=== PATIENT | female | born 1930 | race Caucasian/White ===

== ENCOUNTER 2019-11-22 12:01 | Inpatient (IN) ==
[2019-11-22] MEDS ORDERED: NS 0.9% 1000 ml BAG 1,000 ML IV ONE (12:15)
[2019-11-22] MEDS ORDERED: Metoprolol Tartrate 5 mg VIAL 5 ml VIAL (1 mg/ml) IV ONE (12:31)
[2019-11-22 12:49] LABS: Activated Partial Thrombo Time 25.3 seconds (26.0-38.0); INR 1.06 (0.82-1.09)
[2019-11-22 12:53] LABS: ALT 10 U/L (7-52); AST 16 U/L (13-39); Albumin/Globulin Ratio 1.4 (1-3); Alkaline Phosphatase 80 U/L (34-104); Anion Gap 7 mmol/L (2-11); BUN/Creatinine Ratio 13.3 (8-20); Blood Urea Nitrogen 19 mg/dL (6-24); CO2 Carbon Dioxide 27 mmol/L (22-32); Calcium 9.2 mg/dL (8.6-10.3); Chloride 103 mmol/L (101-111); EGFR African American 41.9 (>60); EGFR Non-African American 34.6 (>60); Globulin 2.9 g/dL (2-4); Glucose 147 mg/dL (70-100); Potassium 3.5 mmol/L (3.5-5.0); Sodium 137 mmol/L (135-145); Total Protein 6.9 g/dL (6.4-8.9)
[2019-11-22 12:56] LABS: ABS Basophils 0.1 10^3/ul (0-0.2); ABS Eosinophils 0.2 10^3/ul (0-0.6); ABS Lymphocytes 1.1 10^3/ul (1.0-4.8); ABS Monocytes 0.4 10^3/ul (0-0.8); Eosinophil % 2.2 %; Hematocrit 32 % (35-47); Hemoglobin 11.1 g/dL (12.0-16.0); Lymphocyte % 13.7 %; Mean Corpuscular HGB Conc 34 g/dL (31-36); Mean Corpuscular Hemoglobin 32 pg (27-31); Mean Corpuscular Volume 92 fL (80-97); Mean Platelet Volume 9.2 fL (7.4-10.4); Platelet Count 197 10^3/uL (150-450); Red Blood Count 3.51 10^6 /uL (3.70-4.87); Red Cell Distribution Width 14 % (10-15); Troponin I 0.13 ng/mL (<0.03); White Blood Count 8.2 10^3/uL (3.5-10.8)
[2019-11-22] MEDS: nitroGLYCERIN DRIP 25,000 MCG/250 ML BTL IV ONE ×2 (13:28→14:15)
[2019-11-22] MEDS: Heparin DRIP 25,000 UNITS(*) 25,000 UNITS/500 ML BAG IV SCH (13:33)
[2019-11-22] MEDS: Heparin 5000 UNITS/ML VIAL(*) 1 ml vial IV SCH (13:35)
[2019-11-22 13:59] LABS: Urine Appearance Cloudy; Urine Bilirubin Negative (Negative); Urine Blood 1+ (Negative); Urine Color Yellow; Urine Glucose Negative (Negative); Urine Ketones Negative (Negative); Urine Nitrite Positive (Negative); Urine Protein Negative (Negative); Urine Specific Gravity 1.009 (1.010-1.030); Urine Urobilinogen Negative (Negative)
[2019-11-22 14:01] LABS: Urine Bacteria 1+ (Absent); Urine Red Blood Cell 1+(3-5/hpf) (Absent); Urine Squamous Epithelial Cell Present (Absent); Urine White Blood Cell 2+(11-20/hpf) (Absent)
[2019-11-22] MEDS ORDERED: Iodixanol (CONTRAST) 320 MG/ML 100 ML SDV IV ONE (15:42)
[2019-11-22] MEDS ORDERED: metroNIDAZOLE IV 500 MG/100ML 500 MG/100 ML BAG IVPB SCH (16:00)
[2019-11-22] MEDS ORDERED: diPHENhydraMINE IV 50 MG/ML 1 ml VIAL (BENADRYL) ONE (16:37)
[2019-11-22] MEDS ORDERED: Ondansetron 4 mg VIAL 2 MG/ML 2 ml VIAL ONE (16:38)
[2019-11-22] MEDS ORDERED: NS 0.9% 500 ml BAG 500 ML IV ONE (16:40)
[2019-11-22] MEDS ORDERED: diPHENhydraMINE IV 50 MG/ML 1 ml VIAL (BENADRYL) SLOW PUSH STA (16:40)
[2019-11-22] MEDS ORDERED: methylPREDNISolone 125 mg 2 ML VIAL IV STA (16:40)
[2019-11-22] MEDS ORDERED: diPHENhydraMINE IV 50 MG/ML 1 ml VIAL (BENADRYL) SLOW PUSH ONE (17:04)
[2019-11-22] MEDS: cefTRIAXone ADVAN VIAL 1 GM in NS 0.9% 50 ML 50 ML IVPB SCH (17:31)
[2019-11-22 17:41] LABS: Troponin I 2.14 ng/mL (<0.03)
[2019-11-22 20:52] LABS: Troponin I 2.77 ng/mL (<0.03)
[2019-11-23] MEDS: nitroGLYCERIN DRIP 25,000 MCG/250 ML BTL IV SCH ×6 (01:23→20:57)
[2019-11-23 03:39] LABS: Troponin I 9.64 ng/mL (<0.03)
[2019-11-23] MEDS: Heparin 5000 UNITS/ML VIAL(*) 1 ml vial IV SCH (03:58)
[2019-11-23 04:40] LABS: ABS Lymphocytes 0.5 10^3/ul (1.0-4.8); ABS Monocytes 0.1 10^3/ul (0-0.8); Eosinophil % 0.2 %; Hematocrit 32 % (35-47); Hemoglobin 10.9 g/dL (12.0-16.0); Lymphocyte % 11.4 %; Mean Corpuscular HGB Conc 34 g/dL (31-36); Mean Corpuscular Hemoglobin 31 pg (27-31); Mean Corpuscular Volume 94 fL (80-97); Mean Platelet Volume 9.2 fL (7.4-10.4); Nucleated Red Blood Cells % 0.1; Platelet Count 178 10^3/uL (150-450); Red Blood Count 3.47 10^6 /uL (3.70-4.87); Red Cell Distribution Width 14 % (10-15); White Blood Count 4.4 10^3/uL (3.5-10.8)
[2019-11-23 05:02] LABS: Troponin I 7.46 ng/mL (<0.03)
[2019-11-23 08:36] LABS: Troponin I 9.64 ng/mL (<0.03)
[2019-11-23 12:38] LABS: Troponin I 6.66 ng/mL (<0.03)
[2019-11-23 14:23] LABS: Anion Gap 15 mmol/L (2-11); CO2 Carbon Dioxide 17 mmol/L (22-32); Chloride 99 mmol/L (101-111); Potassium 3.4 mmol/L (3.5-5.0); Sodium 131 mmol/L (135-145)
[2019-11-23 14:29] LABS: BUN/Creatinine Ratio 13.6 (8-20); Blood Urea Nitrogen 19 mg/dL (6-24); EGFR African American 42.9 (>60); EGFR Non-African American 35.5 (>60); Glucose 384 mg/dL (70-100)
[2019-11-23] MEDS: cefTRIAXone ADVAN VIAL 1 GM in NS 0.9% 50 ML 50 ML IVPB SCH (15:59)
[2019-11-23] MEDS ORDERED: Haloperidol 5 mg/ml SDV IV/IM 5 MG/ML AMP IV SLOW PU ONE (18:00)
[2019-11-23] MEDS ORDERED: Haloperidol 5 mg/ml SDV IV/IM 5 MG/ML AMP ONE (18:06)
[2019-11-23] MEDS ORDERED: Potassium Chlor 20 meq TAB.ER PO ONE (21:00)
[2019-11-23 21:26] LABS: Magnesium 1.9 mg/dL (1.9-2.7)
[2019-11-23] MEDS ORDERED: KCL 20 MEQ/100 ML IVPREMIX 20 MEQ/100 ML BAG IV ONE (22:00)
[2019-11-24] MEDS ORDERED: Haloperidol 5 mg/ml SDV IV/IM 5 MG/ML AMP IV SLOW PU ONE (01:20)
[2019-11-24 02:07] LABS: ABS Eosinophils 0.1 10^3/ul (0-0.6); ABS Lymphocytes 1.1 10^3/ul (1.0-4.8); ABS Monocytes 0.6 10^3/ul (0-0.8); Hematocrit 25 % (35-47); Hemoglobin 8.3 g/dL (12.0-16.0); Lymphocyte % 11.5 %; Mean Corpuscular HGB Conc 34 g/dL (31-36); Mean Corpuscular Hemoglobin 32 pg (27-31); Mean Corpuscular Volume 94 fL (80-97); Mean Platelet Volume 9.6 fL (7.4-10.4); Platelet Count 157 10^3/uL (150-450); Red Blood Count 2.63 10^6 /uL (3.70-4.87); Red Cell Distribution Width 14 % (10-15); White Blood Count 9.2 10^3/uL (3.5-10.8)
[2019-11-24 02:11] LABS: CO2 Carbon Dioxide 18 mmol/L (22-32); Calcium 8.2 mg/dL (8.6-10.3); Chloride 110 mmol/L (101-111); Sodium 128 mmol/L (135-145)
[2019-11-24 02:16] LABS: BUN/Creatinine Ratio 14.8 (8-20); Blood Urea Nitrogen 22 mg/dL (6-24); Glucose 216 mg/dL (70-100)
[2019-11-24 02:57] LABS: ABS Eosinophils 0.1 10^3/ul (0-0.6); ABS Lymphocytes 1.1 10^3/ul (1.0-4.8); ABS Monocytes 0.6 10^3/ul (0-0.8); Eosinophil % 0.9 %; Hematocrit 29 % (35-47); Hemoglobin 10.2 g/dL (12.0-16.0); Lymphocyte % 12.3 %; Mean Corpuscular HGB Conc 35 g/dL (31-36); Mean Corpuscular Hemoglobin 32 pg (27-31); Mean Corpuscular Volume 93 fL (80-97); Mean Platelet Volume 9.3 fL (7.4-10.4); Platelet Count 180 10^3/uL (150-450); Red Blood Count 3.15 10^6 /uL (3.70-4.87); Red Cell Distribution Width 13 % (10-15); White Blood Count 9.1 10^3/uL (3.5-10.8)
[2019-11-24 03:12] LABS: BUN/Creatinine Ratio 14.3 (8-20); Calcium 9.3 mg/dL (8.6-10.3); EGFR African American 36.5 (>60); EGFR Non-African American 30.2 (>60); Potassium 3.7 mmol/L (3.5-5.0)
[2019-11-24] MEDS: Heparin 5000 UNITS/ML VIAL(*) 1 ml vial IV SCH (04:05)
[2019-11-24] MEDS: Heparin DRIP 25,000 UNITS(*) 25,000 UNITS/500 ML BAG IV SCH (04:06)
[2019-11-24] MEDS: cefTRIAXone ADVAN VIAL 1 GM in NS 0.9% 50 ML 50 ML IVPB SCH (16:02)
[2019-11-25 05:43] LABS: ABS Eosinophils 0.1 10^3/ul (0-0.6); ABS Lymphocytes 0.9 10^3/ul (1.0-4.8); ABS Monocytes 0.5 10^3/ul (0-0.8); Eosinophil % 0.8 %; Hematocrit 33 % (35-47); Hemoglobin 10.9 g/dL (12.0-16.0); Lymphocyte % 10.4 %; Mean Corpuscular HGB Conc 34 g/dL (31-36); Mean Corpuscular Hemoglobin 31 pg (27-31); Mean Corpuscular Volume 94 fL (80-97); Mean Platelet Volume 10.2 fL (7.4-10.4); Nucleated Red Blood Cells % 0.1; Platelet Count 195 10^3/uL (150-450); Red Blood Count 3.47 10^6 /uL (3.70-4.87); Red Cell Distribution Width 14 % (10-15); White Blood Count 8.8 10^3/uL (3.5-10.8)
[2019-11-25] MEDS: Rivaroxaban 15 mg TAB (*) PO SCH (08:08)
[2019-11-25] MEDS ORDERED: Magnesium Hydroxide LIQ 30 ML UDC PO PRN (08:58)
[2019-11-25 10:12] LABS: BUN/Creatinine Ratio 15.3 (8-20); Calcium 9.4 mg/dL (8.6-10.3); EGFR African American 39.7 (>60); EGFR Non-African American 32.8 (>60); Potassium 3.6 mmol/L (3.5-5.0)
[2019-11-25] MEDS ORDERED: Isosorbide Mononit ER 30mg TAB PO ONE (11:41)
[2019-11-25] MEDS: hydrALAZINE 20 mg/ml 1 ML Vial IV IV SLOW PU PRN (20:44)
[2019-11-26] MEDS: hydrALAZINE 20 mg/ml 1 ML Vial IV IV SLOW PU PRN ×2 (03:12→15:35)
[2019-11-26 09:03] LABS: Anion Gap 11 mmol/L (2-11); BUN/Creatinine Ratio 18.9 (8-20); Blood Urea Nitrogen 28 mg/dL (6-24); CO2 Carbon Dioxide 21 mmol/L (22-32); Calcium 9.4 mg/dL (8.6-10.3); Chloride 110 mmol/L (101-111); EGFR African American 40.3 (>60); EGFR Non-African American 33.3 (>60); Glucose 165 mg/dL (70-100); Magnesium 2.2 mg/dL (1.9-2.7); Potassium 3.5 mmol/L (3.5-5.0); Sodium 142 mmol/L (135-145)
[2019-11-26 09:10] LABS: Troponin I 10.74 ng/mL (<0.03)
[2019-11-26] MEDS: Rivaroxaban 15 mg TAB (*) PO SCH (09:38)
[2019-11-26] MEDS: Isosorbide Mononit ER 30mg TAB PO SCH (13:29)
[2019-11-26 14:35] LABS: Troponin I 8.66 ng/mL (<0.03)
[2019-11-27] MEDS: Isosorbide Mononit ER 30mg TAB PO SCH (07:39)
[2019-11-27] MEDS: Rivaroxaban 15 mg TAB (*) PO SCH (07:40)
[2019-11-28 04:09] VITALS: BP 109/65
[2019-11-28] MEDS ORDERED: Sodium Bicarbonate 8.4% SYR 50 ml SYRINGE ONE (05:38)
[2019-11-28] MEDS ORDERED: EPINEPHrine SYR 0.1MG/ML 10 ml SYRINGE ONE (05:38)
[2019-11-28] MEDS ORDERED: Atropine 0.1 MG/ML 10 ml SYR (1 mg) ONE (05:38)
[2019-11-28 05:44] LABS: BUN/Creatinine Ratio 17.3 (8-20); Calcium 9.7 mg/dL (8.6-10.3); EGFR Non-African American 16.6 (>60); Magnesium 2.9 mg/dL (1.9-2.7); Potassium 4.7 mmol/L (3.5-5.0)
[2019-11-28] MEDS: Rivaroxaban 15 mg TAB (*) PO SCH (11:41)
[2019-11-28] MEDS: Isosorbide Mononit ER 30mg TAB PO SCH (11:41)
== END 2019-11-28 05:55 | disposition expired ==
LOC: ED 12:01 → CHICATH 13:30 → ICU 14:03 → MEDTELE 11-25 11:54
PROVIDERS: ADMIT Internal Medicine; ATTEND Internal Medicine